=== PATIENT | female | born 1945 | race Caucasian/White ===

== ENCOUNTER 2018-03-24 01:56 | Inpatient (IN) | payer MEDICARE ==
[~2018-03-24] VITALS: Ht 180.3 cm; Wt 73.9 kg
[2018-03-24] VITALS (17 sets, daily range): BP systolic 133–164; BP diastolic 50–80
[~2018-03-24 01:56] MED LIST: IBUP800T37 PO
[2018-03-24] MEDS: NORMOSOL R SOLN(*) 1000 ML BAG 1,000 ML IV PRN ×2 (05:35→11:59)
[2018-03-24] MEDS ORDERED: ACETAMINOPHEN 500 MG TAB PO ONE (06:00)
[2018-03-24] MEDS ORDERED: MIDAZOLAM 2 MG/2 ML VIAL IVP PRN (06:00)
[2018-03-24] MEDS ORDERED: PREGABALIN 75 MG CAPSULE PO ONE (06:00)
[2018-03-24] MEDS ORDERED: FAMOTIDINE 20 MG TAB PO ONE (06:00)
[2018-03-24] MEDS ORDERED: ceFAZolin(*) 2GM/D5W 50ML 50 ML IVPB ONE (06:00)
[2018-03-24] MEDS ORDERED: LIDOCAINE/SOD BICARB 8.4% SYR ID ONE (06:00)
[2018-03-24] MEDS ORDERED: THROMBIN (BOVINE) 20,000 UNIT VIAL ONE (06:20)
[2018-03-24] MEDS ORDERED: ROPIVACAINE 0.2% 20 ML VIAL ONE (06:20)
[2018-03-24] MEDS ORDERED: fentaNYL CITR 250 MCG/5 ML AMP ONE ×2 (06:26→07:34)
[2018-03-24] MEDS ORDERED: PROPOFOL EMUL(*) 10MG/ML 20 ML 20 ML ONE ×4 (06:27→10:52)
[2018-03-24] MEDS ORDERED: LIDOCAINE 2% IV 100 MG/5ML SYR ONE (06:27)
[2018-03-24] MEDS ORDERED: PROPOFOL EMUL(*) 10MG/ML 20 ML 60 ML ONE (06:43)
--- NOTE | 2018-03-24 07:05 | NUR ---
SCRUB BRUSHES/WIPES DONE 03/23/18 1830 AND 2029, AGAIN 03/24/18 AT 0430AM
[2018-03-24] MEDS ORDERED: ROCURONIUM BROM 10 MG/ML 10 ML ONE (07:09)
[2018-03-24] MEDS ORDERED: ONDANSETRON 4 MG/2 ML VIAL ONE (07:17)
[2018-03-24] MEDS ORDERED: DEXAMETHASONE SOD PHOS 10MG/ML ONE (07:17)
[2018-03-24] MEDS ORDERED: KETAMINE HCL 200 MG/20 ML MDV ONE ×3 (07:26→09:27)
[2018-03-24] MEDS ORDERED: fentaNYL CITR 100 MCG/2 ML AMP ONE (12:09)
[2018-03-24] MEDS ORDERED: DIAZEPAM 5 MG TAB PO PRN (12:55)
[2018-03-24] MEDS ORDERED: BISACODYL 10 MG SUPP PR PRN (12:55)
[2018-03-24] MEDS ORDERED: MAGNESIUM HYDROXIDE* 30ML UDCP PO PRN (12:55)
[2018-03-24] MEDS ORDERED: ACETAMINOPHEN 500 MG TAB PO PRN (12:55)
[2018-03-24] MEDS ORDERED: oxyCODONE HCL 5 MG CAP PO PRN (12:55)
[2018-03-24] MEDS ORDERED: HYDROmorphone HCL 2 MG/ML SDV IVP PRN (12:55)
[2018-03-24] MEDS ORDERED: FLUSH 10 ML SYR IVP PRN (12:55)
[2018-03-24] MEDS ORDERED: diphenhydrAMINE 25 MG CAP PO PRN (12:55)
[2018-03-24] MEDS ORDERED: BENZOCAINE/MENTHOL 1 EACH LOZG PO PRN (12:55)
[2018-03-24] MEDS ORDERED: LR(*) 1000 ML BAG 1,000 ML IV PRN (12:55)
--- NOTE | 2018-03-24 13:01 | OPERATIVE REPORT 1 ---
EVENT DATE: March 24, 2018 SURGEON: Huan Cobian MD ANESTHESIOLOGIST: Mika Quinones MD ANESTHESIA: General endotracheal. NUTRITION PROFESSOR: Ritesh Valladares PA-C PREOPERATIVE DIAGNOSIS L4, L5 and L5, S1 degenerative spondylolisthesis with L4, L5 and L5, S1 spinal stenosis and radiculopathy with neurogenic claudication. POSTOPERATIVE DIAGNOSIS L4, L5 and L5, S1 degenerative spondylolisthesis with L4, L5 and L5, S1 spinal stenosis and radiculopathy with neurogenic claudication. PROCEDURE PERFORMED L4, L5 and L5, S1 laminectomy with posterolateral instrumented fusion. IV FLUIDS 2400 cc. ESTIMATED BLOOD LOSS 300 cc. IMPLANTS USED 6.5 mm x 45 mm pedicles screws from [employer] times 4. 6.5 mm x 40 mm pedicle screws from [employer] times 2. A 5.5 mm x 60 mm connecting rashawn times 1 and a 5.5 mm x 65 mm connecting rashawn times 1. Locking caps times 6 all from [employer]. SPECIMENS None. DRAINS None. COMPLICATIONS None. DISPOSITION For post anesthesia care unit INDICATIONS FOR SURGERY The patient is a 72-year-old female who presented with a complaint of low back and severe radiating left leg pain, numbness, tingling and weakness. She felt like the back pain began back in 2012 and physical therapy helped at the time. She then had gradually worsening left leg pain and weakness, ultimately requiring her to progress from normal gait to use of a cane, then a 4 footed cane, and finally a 4 wheeled walker. Her physical examination was significant for weakness in the left quadriceps, tibialis anterior and extensor hallucis longus as well as as gastroclisis complex. Deep tendon reflexes were symmetric. She had dysesthesias in the left saphenous and superficial peroneal nerve distributions with light touch. She had down going Babinski's, no clonus and negative Sullivan sign. Imaging studies showed anterolisthesis of L4 on L5 and L5, S1 with significant stenosis secondary to uncovering of the disc, facet hypertrophy and ligamentum flavum thickening at both of those levels. Secondary to ongoing symptoms and failure of nonsurgical care, the patient was offered an elected to undergo L4, L5 and L5, S1 laminectomy and posterolateral instrumented fusion. Prior to surgery, I explained in detail to the patient possible risks of surgery. These risks include bleeding, infection, damage to surrounding structures, persistent and/or worsening pain, nerve root injury, spinal fluid leak, meningitis, , blindness, sexual dysfunction, autonomic nervous system dysfunction, and other unforeseen medical and surgical complications. An understanding that in general, spinal surgery is more predictive at improving extremity discomfort and improving extremity weakness than improving axial back pain was stressed. DESCRIPTION OF PROCEDURE On the day of surgery, the patient was met in the preoperative hold area and all questions were answered. The operative site was identified and marked by myself. The patient was brought in good condition to the operating room and after succumbing to anesthesia, was position in the prone position on a Bernabe style table. All bony protuberances and soft tissues were well padded in the standard fashion. Care was taken to maintain appropriate perfusion pressures during anesthesia. Preoperative and intraoperative antibiotics were administered according to the appropriate timing scheduled. At the conclusion of the procedure sponge and needle counts were correct times 2. Final timeout was undertaken by members of the operating team to confirm correct patient, correct levels and correct surgery. A vertical incision was made overlying the intended surgical levels and sharp dissection was carried out down to the posterior elements. Soft tissues were elevated off the posterior elements in a subperiosteal manner and a lateral radiograph was obtained to confirm appropriate spinal levels. Starting points for pedicle screws were identified and uncovered using a combination of soft tissue elevation and the bipolar and monopolar electrocautery. This was at approximately the junction of the midpoint of the transverse processes, the superior aspect of the pars interarticularis and the lateral border of the facets at L4 and L5 and at S1 it was at the lateral and inferior margin of the L5, S1 facet joint. Once these were uncovered, the lateral gutters were packed with thrombin soaked sponges and attention was then turned to the laminectomy portion of the procedure. The spinous processes of L4 and L5 as well as the inferior aspect of the spinous process of L3 was removed with a Leksell rongeur and Milka bone cutter. The Leksell rongeur was used to thin the laminas down the midline and high speed darrius was used to further decorticate and thin the midline of the lamina. A curette was used to enter the canal by undermining the superior insertion of the ligamentum flavum from the inferior aspect of the L5 lamina. A Hertford elevator was used to separate dural adhesions from surrounding bone and soft tissue prior to use of the Kerrison punch. A #4 and #3 Kerrison rongeur were then used to perform a midline decompression of L4, L5 and L5, S1. We then used the Ronaldo elevator to separate scar from the dura, particularly on the left side at L5, S1 and then we were able to perform a wide posterolateral and lateral recess decompression. At the conclusion of the decompression, I was able to run the Serrato probe and the Hertford elevator along in the lateral recesses with no significant pressure noted on the nerves. The Serrato probe was similarly passed through the effected foramina and again, no significant pressure was noted. Hemostasis was obtained and attention was placement of pedicle screws. Starting points for pedicle screws were identified as previously described and a 5 mm high speed darrius was used to decorticate the overlying bone. A Lenke style probe was then advanced against resistance through the pedicles bilaterally at L4, L5 and S1 to an appropriate depth. Ball-tip feeler was used to palpate the pedicles superiorly, inferior, medially, laterally, and distally to insure absence of kd breaching. Screws were then placed in the standard fashion and testing with nerve physiologic monitoring and all tested greater than 20 milliamps. We had to leave the screws at L5 and L4 a little bit proud in order to facilitate placement of connecting rods. We were then able to place the connecting rods within the tulips and then place locking caps. Lateral radiograph was obtained that confirmed excellent position of all the instrumentation. The locking caps were then tightened and then finally tightened with the torque limiting device. The wound was then irrigated with copious sterile saline solution and we used a high speed darrius to then decorticate the transverse processes of L4 and L5 bilaterally, as well as the superior aspect of the sacral ala. Milled local bone which had been previously prepared was then packed in those lateral gutters overlying the transverse processes and the sacral ala. Once this was completed, the wound was closed in layers using a running stitch for the deep fascia, inverted interrupted sutures for the subcutaneous tissue and the a running subcuticular skin stitch. Sponge and needle counts were correct times 2. POSTOPERATIVE CARE PLAN The patient will remain in the hospital until she meets discharge criteria. She will follow up in my clinic in 2 weeks for wound check and examination. JOAQUÍN
--- NOTE | 2018-03-24 13:21 | RADIOLOGY IMAGING REPORT ---
[place] [facility] [place] NAME[place] Lizzie Damon : 1945 MR: [id number] V: [id number] EXAM DATE: ORDERING PHYSICIAN: TYLOR NICHOLE TECHNOLOGIST: Location: [facility] Patient: Lizzie Damon : 1945 Visit/Account:[id number] Date of Sevice: 03/24/2018 L-SPINE >4 VIEWS HISTORY: L4-S1 DISC HERNIATION/FUSION COMPARISON: MRI examination February 25 FINDINGS: Images are demonstrated with hardware posteriorly at the level of L3-L4. Subsequent images demonstra te lumbosacral fusion L4-S1. Correlate with operative note. IMPRESSION: Intraoperative fluoroscopy Report Dictated By: Eitan Bill MD at 03/24/2018 1:10 PM Report E-Signed By: Eitan Bill MD at 03/24/2018 1:16 PM WSN:[id number]
--- NOTE | 2018-03-24 14:04 | Hospitalist Consultation ---
History of Present Illness Requesting Physician Dr. Cobian Reason for Consult Medical Management Chief Complaint s/p lumbar surgery History of Present Illness She was admitted s/p lumbar surgery. It is reported the surgery went well and without complication. History Home Meds Reported Medications Ibuprofen (IBUPROFEN) 800 Mg Tablet, 1 TAB PO BID, TAB 03/17/18 Allergies: Coded Allergies: Sulfa (Sulfonamide Antibiotics) (Verified Allergy, Mild, HIVES, 03/17/18) Patient History: FH: diabetes mellitus MOTHER, BROTHER OR SISTER FH: hypertension FATHER, FH: stroke FATHER, Hx Smoking: Yes (Quit 10 years ago) Smoking Status: Former Smoker When Quit Tobacco?: 2008 Caffeine Intake: Coffee Caffeine/Cups Per Day: 2-3/DAY Alcohol Used: Wine Social Drug Use: Never History of IV Drug Use: No Review of Systems All Systems Reviewed/Normal: Yes, Except as Noted Musculoskeletal: Pain (surgical site, lumbar) Exam Vital Signs Vital Signs Date Time Temp Pulse Resp B/P (MAP) Pulse Ox O2 Delivery O2 Flow Rate FiO2 03/24/18 13:35 80 12 95 03/24/18 06:45 97.8 164/80 (108) Room Air General Appearance: Alert, Awake, No Acute Distress, Afebrile Neuro: No Gross deficits Cardiovascular: Regular Rate and Rhythm Respiratory: No Respiratory Distress, Clear to Auscultation GI: Abd Soft and Non-Tender Extremities: Warm, Perfused; No Edema Psych: Alert & Oriented X3, Appropriate Mood & Affect Assessment and Plan Problems: (1) Status post lumbar surgery Status: Acute Assessment & Plan: Followed by Dr. Cobian. Hospitalist will follow for any medical complications. She only takes Ibuprofen as needed for pain. She denies any medical history. She will get CMP in the morning to assure electrolytes are normal post-operatively. Venous Thromboembolism Antithrombotics Is Pt On Any Antithrombotics?: No Prophylaxis Tx Contraindicated Pharmacological Contraindicati: Surgical Contraindication KIMBERLY CORREIA Mar 24, 2018 14:04
[2018-03-24] MEDS: APAP/HYDROCODONE 325/5 TAB PO PRN (14:26)
--- NOTE | 2018-03-24 15:38 | NUR ---
Physical Therapy Impression Pt instructed in log rolling technique for supine<>sit transfer but was able to initiate any movement during transfer. Pt required Max-Total A for supine<>sit transfer and was unable to maintain sitting at EOB without Min A due to retropulsion. Not safe to attempt additional mobility at this time. Recommend nursing use bed crump at this time. Physical Therapy Goals 1. SBA bed mobility using log rolling technique. 2. SBA transfers. 3. SBA gait x 50' with 4-wheeled walker. 4. Ascend/descend 1 step CGA. 5. Mod I with lumbar precautions. Patient's Goals
[2018-03-24] MEDS: ceFAZolin(*) 2GM/D5W 50ML 50 ML IVPB SCH ×2 (15:39→23:19)
[2018-03-24] MEDS: ACETAMINOPHEN(*)1000 MG/100 ML 100 ML IVPB PRN (20:07)
[2018-03-24] MEDS: ONDANSETRON 4 MG/2 ML VIAL IVP PRN (20:07)
[2018-03-24] MEDS: DOCUSATE SODIUM 100 MG CAP PO SCH (20:15)
[2018-03-25 00:14] VITALS: BP 165/64
[2018-03-25] MEDS: APAP/HYDROCODONE 325/5 TAB PO PRN (05:42)
[2018-03-25] MEDS: ceFAZolin(*) 2GM/D5W 50ML 50 ML IVPB SCH (07:02)
[2018-03-25 07:28] VITALS: BP 160/68
[2018-03-25] MEDS ORDERED: NS(*) 0.9% 1000 ML BAG 1,000 ML IV PRN ×2 (08:25→10:43)
[2018-03-25] MEDS: DOCUSATE SODIUM 100 MG CAP PO SCH ×2 (08:40→21:59)
[2018-03-25] MEDS: ONDANSETRON 4 MG/2 ML VIAL IVP PRN (08:41)
[2018-03-25 09:05] LABS: PLATELET COUNT, AUTOMATED 196 K/uL (150-450)
--- NOTE | 2018-03-25 09:46 | NUR ---
Physical Therapy Impression Bed mobility completed with HOB completely elevated with pt pivoting on bottom to prevent twisting motion of back. Pt required min-modA of 2 to transition supine to sit. Pt fearful of movement. BAJA brace donned in sitting and tightened upon standing. Pt required min-modA to rise to stand, with retropulsion noted. Pt required step by step cues and min-modA x2 for stand pivot transfer from bed to radiology w/c. Pt demonstrates plantar flexed posturing of L) foot but able to weightbear when instructed. Pt with nausea once up in chair, BP WNL, nursing present. Rec short term sub acute rehab. Physical Therapy Goals 1. SBA bed mobility using log rolling technique. 2. SBA transfers. 3. SBA gait x 50' with 4-wheeled walker. 4. Ascend/descend 1 step CGA. 5. Mod I with lumbar precautions. Patient's Goals
[2018-03-25 10:01] VITALS: BP 165/86
[2018-03-25 10:31] VITALS: Ht 180.3 cm; Wt 73.9 kg
--- NOTE | 2018-03-25 10:55 | Hospitalist Progress Note ---
Subjective Progress Notes Subjective She was admitted after lumbar surgery. She reports a lot of post-operative pain this morning. She is having difficulty moving. She also has had decreased urine output overnight. Patient Complains of: Cardiovascular: No: Chest Pain Respiratory: No: Shortness of Breath Gastrointestinal: Nausea Musculoskeletal: Pain Physical Exam Vital Signs Date Time Temp Pulse Resp B/P (MAP) Pulse Ox O2 Delivery O2 Flow Rate FiO2 03/25/18 10:36 97.4 98 20 89 Room Air 03/25/18 10:01 165/86 (112) 03/25/18 07:28 0.5 Intake and Output 03/25/18 00:00 Intake Total 2260 ml Output Total 600 ml Balance 1660 ml Intake Oral 10 ml IV Total 2250 ml Blood Product 0 ml Other 0 ml Emesis 100 ml Estimated Blood Loss 500 ml # Voids 0 # Emeses 1 General Appearance: Alert, Awake, No Acute Distress, Afebrile Neuro: No Gross deficits Cardiovascular: Regular Rate and Rhythm Respiratory: No Respiratory Distress, Clear to Auscultation : Other (urine retention noted) Extremities: Warm, Perfused; No Edema Psych: Alert & Oriented X3, Appropriate Mood & Affect Result Diagram: 03/25/18 0000 03/25/18 0525 Assessment and Plan Problems: (1) Status post lumbar surgery Status: Acute Assessment & Plan: Followed by Dr. Cobian. Hospitalist will follow for any medical complications. She only takes Ibuprofen as needed for pain. She denies any medical history. (2) Acute urinary retention Status: Acute Assessment & Plan: She has required intermittent urinary catheterizations. She will continue to have IV fluids this morning, secondary to decreased urine output and decreased appetite. Continue to follow. 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
--- NOTE | 2018-03-25 11:47 | RADIOLOGY IMAGING REPORT ---
FACILITY: [facility] PATIENT NAME: Lizzie Damon : 1945 MR: [id number] V: [id number] EXAM DATE: ORDERING PHYSICIAN: TYLOR NICHOLE TECHNOLOGIST: Location: [facility] Patient: Lizzie Damon : 1945 Visit/Account:[id number] Date of Sevice: 03/25/2018 Exam type: L-SPINE 2 OR 3 VIEW History: s/p Lami/fusion Comparison: March 24, 2018. Findings: Again noted are post surgical changes from posterior lumbar interbody fusion at L4-L5 and L5-S1. The vertebral bodies appear unchanged in alignment. There is an approximate 1 cm anterolisthesis of L5 with respect S1 and moderate disc space narrowing at this level. Moderate spondylotic changes in the visualized lower thoracic spine also noted and mild disc space narrowing L1-2. There is a posterior brace in place IMPRESSION: 1. As above Report Dictated By: Kamala Fontana MD at 03/25/2018 11:39 AM Report E-Signed By: Kamala Fontana MD at 03/25/2018 11:43 AM WSN:[id number]
[2018-03-25 11:48] VITALS: BP 143/66
[2018-03-25 14:37] VITALS: BP 141/59
--- NOTE | 2018-03-25 16:45 | NUR ---
Physical Therapy Impression Nursing assisting pt up to [facility]. PT available for second session. Alert, but with diminished affect noted. Pt initially attempted to stand with FWW but was unable to maintain center of gravity over base of support. PT then tried again with use of gait belt and max/total assist of PT to complete pivot transfer to [facility]. Pt was very fearful, reaching for things to grab and resisting the movement. Upon return from [facility] to bed, PT and nursing utilized the EZ lift device and pt still required 2 person Mod assist to bring hips far enough forward to place pads behind her. Pt is unable to stand fully erect and remains with hips and knees flexed. Recommend further rehab prior to discharge home for safety with any mobility. Physical Therapy Goals 1. SBA bed mobility using log rolling technique. 2. SBA transfers. 3. SBA gait x 50' with 4-wheeled walker. 4. Ascend/descend 1 step CGA. 5. Mod I with lumbar precautions. Patient's Goals
[2018-03-25] MEDS: TAMSULOSIN HCL 0.4 MG CAP PO SCH (18:24)
[2018-03-25] MEDS: ACETAMINOPHEN(*)1000 MG/100 ML 100 ML IVPB PRN (21:59)
[2018-03-25 23:43] VITALS: BP 145/82
[2018-03-26 03:02] VITALS: BP 159/65
[2018-03-26 07:08] VITALS: BP 159/65
[2018-03-26] MEDS: APAP/HYDROCODONE 325/5 TAB PO PRN (07:30)
[2018-03-26] MEDS: TAMSULOSIN HCL 0.4 MG CAP PO SCH (09:00)
[2018-03-26] MEDS: DOCUSATE SODIUM 100 MG CAP PO SCH ×2 (09:00→20:29)
[2018-03-26] MEDS ORDERED: ACETAMINOPHEN(*)1000 MG/100 ML 100 ML IVPB PRN ×2 (10:00→10:05)
[2018-03-26] MEDS ORDERED: ACETAMIN/CODEINE #3 300-30 MG PO PRN (10:00)
[2018-03-26] MEDS ORDERED: DIAZEPAM 50 MG/10 ML MDV IVP PRN (10:05)
--- NOTE | 2018-03-26 10:47 | Hospitalist Progress Note ---
Subjective Progress Notes Subjective She was admitted after lumbar surgery. She appears difficult to awaken, has pin point pupils, slurring words. She denies any complaints, states "I don't feel bad". Patient Complains of: Neurological: Slurred Speech Cardiovascular: No: Chest Pain Respiratory: No: Shortness of Breath Physical Exam Vital Signs Date Time Temp Pulse Resp B/P (MAP) Pulse Ox O2 Delivery O2 Flow Rate FiO2 03/26/18 07:44 90 Nasal Cannula 0.5 03/26/18 07:08 97.8 111 16 159/65 (96) Intake and Output 03/26/18 07:00 Intake Total 2754 ml Output Total 1780 ml Balance 974 ml Intake Oral 150 ml IV Total 2604 ml Output Urine Total 1780 ml General Appearance: Alert, Awake, No Acute Distress, Afebrile Neuro: No Gross deficits, Other (2+ strength bilateral hands and feet, able to lift arms in air without drop) Cardiovascular: Regular Rate and Rhythm Respiratory: No Respiratory Distress, Clear to Auscultation GI: Soft and Non-Tender Extremities: Warm, Perfused; No Edema Psych: Alert & Oriented X3, Appropriate Mood & Affect Result Diagram: 03/25/18 0000 03/25/18 0525 Assessment and Plan Problems: (1) Status post lumbar surgery Status: Acute Assessment & Plan: Followed by Dr. Cobian. Hospitalist will follow for any me dical complications. She only takes Ibuprofen as needed for pain. She denies any medical history. She appears oversedated from medications, as she is neurologically intact. Dr. Cobian did reduce narcotics 03/26. Will continue to monitor. (2) Acute urinary retention Status: Acute Assessment & Plan: She has required intermittent urinary catheterizations. She will continue to have IV fluids, secondary to decreased urine output and dec reased appetite. Continue to follow. 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
[2018-03-26 11:46] VITALS: BP 135/62
[2018-03-26 14:16] VITALS: BP 143/54
--- NOTE | 2018-03-26 16:24 | NUR ---
Physical Therapy Impression Attempted to see Pt from [id number] with Pt unable to stay awake, follow directions, or successfully participate in PT. Will attempt at a later time. Physical Therapy Goals 1. SBA bed mobility using log rolling technique. 2. SBA transfers. 3. SBA gait x 50' with 4-wheeled walker. 4. Ascend/descend 1 step CGA. 5. Mod I with lumbar precautions. Patient's Goals
--- NOTE | 2018-03-26 16:29 | NUR ---
Physical Therapy Impression Pt with some initiation of moving B LEs toward EOB but ultimately required Max A and use of elevated bed to transfer supine>sit and Max A-Total A for sit>supine transfer. Log roll technique utilized for protection of lumbar surgery. Pt stood into EZ lift with Max A x2. Verbal and tactile cueing utilized to try to improved forward flexed posture, Pt unable. Pt returned to supine as current posture is in violation of lumbar precautions. Strongly recommend additional rehab prior to returning home. Physical Therapy Goals 1. SBA bed mobility using log rolling technique. 2. SBA transfers. 3. SBA gait x 50' with 4-wheeled walker. 4. Ascend/descend 1 step CGA. 5. Mod I with lumbar precautions. Patient's Goals
[2018-03-26 18:39] VITALS: BP 145/63
[2018-03-26] MEDS: ACETAMINOPHEN 500 MG TAB PO PRN (20:29)
[2018-03-26 22:38] VITALS: BP 160/71
[2018-03-27 07:32] VITALS: BP 154/71
--- NOTE | 2018-03-27 08:22 | Hospitalist Progress Note ---
Subjective Progress Notes Subjective Main issue is complete inactivity even off the narcotics. She has no interest in moving. Pain control is reasonable with the low back. Denies SOB, cough. Barely using the inspirometer. Physical Exam Vital Signs Date Time Temp Pulse Resp B/P (MAP) Pulse Ox O2 Delivery O2 Flow Rate FiO2 03/27/18 07:58 87 03/27/18 07:32 98.1 90 20 154/71 (98) Nasal Cannula 0.5 Intake and Output 03/27/18 06:59 Intake Total 50 ml Output Total 1925 ml Balance -1875 ml Intake Oral 50 ml Output Urine Total 1925 ml General Appearance: Alert, Awake, No Acute Distress, Afebrile Cardiovascular: Regular Rate and Rhythm, Other (S1S2 are normal. Grade 1/6 short systolic murmur LSB.) Respiratory: Clear to Auscultation, Other (Tidal volume is small with poor respiratory effort but there are no wheezes, ronchi.) Extremities: Warm, Perfused Psych: Other (Awake and will answer questions and respond appropirately but is sluggish. ) Result Diagram: 03/25/18 0000 03/25/18 0525 Assessment and Plan Problems: (1) Status post lumbar surgery Status: Acute Assessment & Plan: Followed by Dr. Cobian. Hospitalist will follow for any medical complications. She only takes Ibuprofen as needed for pain. She denies any medical history. She appeared oversedated from medications yesterday but that has not changed with decreasing meds. Aside from sedation she is neurologically intact. Dr. Cobian did reduce narcotics 03/26. Will continue to monitor. Nurses, and PT will push her to do therapy and use inspirometer. I explained the risk of pneumonia, skin breakdown and clots from her inactivity. Arrangements for longterm Phys Therapy in [place] has been arranged but they will not be able to take her till Thursday. (2) Acute urinary retention Status: Acute Assessment & Plan: She has required intermittent urinary catheterizations. She will continue to have IV fluids, secondary to decreased urine output and decreased appetite. Continue to follow. Time Spent on Plan of Care: > 30 min Exam Sepsis Risk: No Definite Risk RAHUL COOLEY MD FACP Mar 27, 2018 08:22
[2018-03-27] MEDS: DOCUSATE SODIUM 100 MG CAP PO SCH ×2 (09:51→20:50)
[2018-03-27] MEDS: TAMSULOSIN HCL 0.4 MG CAP PO SCH (09:51)
--- NOTE | 2018-03-27 11:09 | NUR ---
Physical Therapy Impression Patient performed log roll with max A x 3 then supine <-> sit max A x 3. Upon sitting brace was placed on patient. Patient then sat EOB x 3 minutes with min A then moving to SBA. Patient then transferred from sitting EOB to standing in STS lift. Patient stood in STS x 5 reps ~15 seconds before needing to sit and rest with max cuing to extend knees and bring hips forward and to stand tall. Patient left in room with nursing at end of treatment. Physical Therapy Goals 1. SBA bed mobility using log rolling technique. 2. SBA transfers. 3. SBA gait x 50' with 4-wheeled walker. 4. Ascend/descend 1 step CGA. 5. Mod I with lumbar precautions. Patient's Goals
[2018-03-27 11:34] VITALS: BP 167/74
[2018-03-27 15:53] VITALS: BP 167/74
[2018-03-27 19:17] VITALS: BP 167/68
[2018-03-27] MEDS: ACETAMINOPHEN 500 MG TAB PO PRN (20:49)
[2018-03-27 23:33] VITALS: BP 176/83
[2018-03-28 07:11] VITALS: BP 180/83
--- NOTE | 2018-03-28 08:17 | Hospitalist Progress Note ---
Subjective Progress Notes Subjective Much better this morning being more alert and talkative. Color much better. Eyes brighter and more focused on conversation. Minimal pain in the low back but legs feel good without pain. Able to stand at bedside with help and doing better with inspirometer. Physical Exam Vital Signs Date Time Temp Pulse Resp B/P (MAP) Pulse Ox O2 Delivery O2 Flow Rate FiO2 03/28/18 07:11 98.2 94 20 180/83 (115) 91 Nasal Cannula 0.5 Intake and Output 03/28/18 07:00 Intake Total 300 ml Output Total 1400 ml Balance -1100 ml Intake Oral 300 ml Output Urine Total 1400 ml General Appearance: Alert, Awake, No Acute Distress, Afebrile Cardiovascular: Regular Rate and Rhythm, Other (S1S2 are loud with grade 1/6 systolic murmur at LSB.) GI: Soft and Non-Tender Extremities: Soft and Non Tender, Warm, Pulses, Perfused Psych: Alert & Oriented X3, Appropriate Mood & Affect Result Diagram: 03/25/18 0000 03/25/18 0525 Assessment and Plan Problems: (1) Status post lumbar surgery Status: Acute Assessment & Plan: Followed by Dr. Cobian. She appeared oversedated from medications post-op so all narcotics were stopped with slow improvement in men lupis status. Aside from sedation she was neurologically intact. Nurses, and PT will push her to do therapy and use inspirometer. I explained the risk of pneumonia, skin breakdown and clots from her inactivity. Arrangements for [facility] in [place] has been arranged but they will not be able to take her till Thursday. Need to D/C graham this morning and ambulate in hallways as much as possible. (2) Acute urinary retention Status: Acute Assessment & Plan: She has required intermittent urinary catheterizations. Graham out today. Time Spent on Plan of Care: > 30 min Exam Sepsis Risk: No Definite Risk RAHUL COOLEY MD FACP Mar 28, 2018 08:17
[2018-03-28] MEDS: TAMSULOSIN HCL 0.4 MG CAP PO SCH (08:54)
[2018-03-28] MEDS: DOCUSATE SODIUM 100 MG CAP PO SCH ×2 (08:54→20:26)
--- NOTE | 2018-03-28 10:21 | NUR ---
Physical Therapy Impression Patient transferred from sts lift to hip chair. After retreiving a chair from ecf patient used sts lift to transfer from hip chair to ecf chair. Patient able to go from sitting to standing in ez lift with min A x 1. Patient is more alert today and able to help more with transfers. Patient is to go to [place] to a rehab unit. Physical Therapy Goals 1. SBA bed mobility using log rolling technique. 2. SBA transfers. 3. SBA gait x 50' with 4-wheeled walker. 4. Ascend/descend 1 step CGA. 5. Mod I with lumbar precautions. Patient's Goals
[2018-03-28 11:40] VITALS: BP 167/82
[2018-03-28 14:55] VITALS: BP 184/86
[2018-03-28] MEDS ORDERED: hydrALAZINE HCL 20 MG/ML VIAL IVP PRN (16:35)
[2018-03-28 18:42] VITALS: BP 131/40
[2018-03-28] MEDS: ONDANSETRON 4 MG/2 ML VIAL IVP PRN (20:26)
[2018-03-29] VITALS (13 sets, daily range): BP systolic 146–181; BP diastolic 52–150
[2018-03-29 08:28] LABS: PLATELET COUNT, AUTOMATED 283 K/uL (150-450)
[2018-03-29] MEDS ORDERED: KCL (*) 20 MEQ/100 ML PREMIX 100 ML IV ONE ×2 (08:50→13:00)
[2018-03-29] MEDS: DOCUSATE SODIUM 100 MG CAP PO SCH (09:29)
[2018-03-29] MEDS: TAMSULOSIN HCL 0.4 MG CAP PO SCH (09:29)
--- NOTE | 2018-03-29 09:38 | RADIOLOGY IMAGING REPORT ---
FACILITY: [facility] [place] PATIENT NAME: Lizzie Damon : 1945 MR: [id number] V: [id number] EXAM DATE: ORDERING PHYSICIAN: KIMBERLY CORREIA TECHNOLOGIST: Location: [facility] - [place] Patient: Lizzie Damon : 1945 Visit/Account:[id number] Date of Sevice: 03/29/2018 EXAMINATION: CT Head without intravenous contrast HISTORY: Decreased responsiveness after surgery. TECHNIQUE: Axial images were obtained from the skull base to the vertex without intravenous contrast . Sagittal and coronal reformatted images are also submitted. One of the following dose optimization techniques was utilized in the performance of this exam: Autom ated exposure control; adjustment of the mA and/or kV according to the patient's size; or use of an i terative reconstruction technique. Specific details can be referenced in the facility's radiology C T exam operational policy. COMPARISON: None available. FINDINGS: Brain volume: Mild generalized volume loss. Ventricles: The ventricles are dilated out of proportion to sulcal enlargement. This could represen t hydrocephalus or volume loss. Acute ischemic changes: None. Hemorrhage: Scattered subarachnoid hemorrhage. Intraventricular hemorrhage in the lateral ventricle s. Masses / edema: None. Rebolledo-white: Negative. White matter: Mild to moderate patchy white matter hypodensity. Vessels: Negative. Extra-axial: Otherwise negative. Calvarium / skull base: Negative. Visualized sinuses / orbits: Negative. IMPRESSION: 1. Scattered subarachnoid hemorrhage and intraventricular hemorrhage in the lateral ventricles. 2. The ventricles are dilated out of proportion to sulcal enlargement which may represent mild hydro cephalus in the setting of subarachnoid and intraventricular hemorrhage. Alternatively this could be related to volume loss. No comparison exam is available to evaluate for stability of this finding. 3. Mild to moderate chronic white matter disease, nonspecific but most likely representing chronic m icrovascular ischemia. Results were called to KIMBERLY CORREIA at 03/29/2018 9:26 AM. Report Dictated By: Carl Luu MD at 03/29/2018 9:23 AM Report E-Signed By: Carl Luu MD at 03/29/2018 9:32 AM WSN:[id number]
--- NOTE | 2018-03-29 09:39 | RADIOLOGY IMAGING REPORT ---
[place] [facility] [place]: Lizzie Damon : 1945 MR: [id number] V: [id number] EXAM DATE: ORDERING PHYSICIAN: KIMBERLY CORREIA TECHNOLOGIST: Location: [facility] [place] Patient: Lizzie Damon : 1945 Visit/Account:[id number] Date of Sevice: 03/29/2018 CHEST SINGLE AP HISTORY: Decreased responsiveness following surgery. COMPARISON: None FINDINGS: Cardiomediastinal contours: The heart size is normal. Lungs and pleura: There is no finding of an infiltrate, lymphadenopathy or pleural effusion. Bones/soft tissues: There has been prior anterior cervical fusion. IMPRESSION: Normal portable chest x-ray. No findings of an infiltrate or significant atelectasis in this postoper ative patient. Report Dictated By: Reji Araya MD at 03/29/2018 9:33 AM Report E-Signed By: Reji Araya MD at 03/29/2018 9:35 AM WSN:[id number]
[2018-03-29] MEDS ORDERED: NS(*) 0.9% 1000 ML BAG 1,000 ML ONE (10:33)
[2018-03-29] MEDS ORDERED: NS(*) 0.9% 250 ML BAG 250 ML ONE (10:52)
[2018-03-29] MEDS ORDERED: NICARDIPINE(*) 20MG/NS 200 ML 200 ML IV ONE ×2 (11:00→11:30)
--- NOTE | 2018-03-29 11:21 | Hospitalist Progress Note ---
Subjective Progress Notes Subjective She was admitted after lumbar laminectomy and fusion. She still has decreased responsiveness. She has not been eating or drinking. She has decreased urine output. Physical Exam Vital Signs Date Time Temp Pulse Resp B/P (MAP) Pulse Ox O2 Delivery O2 Flow Rate FiO2 03/29/18 08:30 99.5 104 24 176/82 (113) 94 Nasal Cannula 1.0 Intake and Output 03/29/18 06:59 Intake Total 240 ml Output Total 1225 ml Balance -985 ml Intake Oral 240 ml Output Urine Total 1225 ml General Appearance: Afebrile Neuro: Other (unable to stay awake throughout exam, seems more weak to lower extremities than my prior exam (Thursday)) Cardiovascular: Other (tachycardia noted, her blood pressures increased yesterday requiring hydralazine) Respiratory: No Respiratory Distress, Clear to Auscultation GI: Soft and Non-Tender Extremities: Warm, Perfused; No Edema Psych: Other (she is aware of her surroundings once awakened, knows what day it is) Result Diagram: 03/29/1882303/29/18823 Assessment and Plan Problems: (1) Subarachnoid hemorrhage Status: Acute Assessment & Plan: With her decreased responsiveness, I ordered a CT head without contrast. I was called from radiology, she has scattered subarachnoid hemorrhage and intraventricular hemorrhage. She does also have dilated ventricles. I did speak with regarding results, he wanted her transferred to [facility]. I called [facility] and spoke with neurosurgeon Dr. Brandt, who is unable to accept the patient secondary to complexity of the patient. He [place] mmended she be transferred to [facility]. I spoke with Dr. Oquendo who has accepted care for this patient at [facility]. She will be transferred by air to their neuro critical care unit. They recommended she be started on a Nicardipine drip to maintain systolic blood pressures less than 140 if there is an aneurysm possibly present. I spoke with patient's . He has consented to transfer of the patient. (2) Status post lumbar surgery Status: Acute Assessment & Plan: She had Laminectomy and Fusion 03/24. Followed by Dr. Cobian. She appeared oversedated from medications post-op so all narcotics were stopped 2/ with slow improvement in mental status. Aside from sedation she was neurologically intact. (3) Acute urinary retention Status: Acute Assessment & Plan: She has required intermittent urinary catheterizations. She will have Kolb placed 2/. Exam Sepsis Risk: Severe Sepsis Risk KIMBERLY CORREIA Mar 29, 2018 11:21
== END 2018-03-29 12:16 | disposition short-term general hospital (02) | DRG 459 ==
LOC: OR 01:56 → MED 13:35
PROVIDERS: ADMIT Orthopaedic Surgery; ATTEND Orthopaedic Surgery
PROC: 0SG3071 Fusion of Lumbosacral Joint with Autologous Tissue Substitute, Posterior Approach, Posterior Column, Open Approach (ICD-10-PCS; 2018-03-24)
PROC: 01NB0ZZ Release Lumbar Nerve, Open Approach (ICD-10-PCS; 2018-03-24)
PROC: 0SG0071 Fusion of Lumbar Vertebral Joint with Autologous Tissue Substitute, Posterior Approach, Posterior Column, Open Approach (ICD-10-PCS; principal; 2018-03-24 07:09)
DX: M43.16 Spondylolisthesis, lumbar region (principal); I61.5 Nontraumatic intracerebral hemorrhage, intraventricular; I60.9 Nontraumatic subarachnoid hemorrhage, unspecified; M48.062 Spinal stenosis, lumbar region with neurogenic claudication; M54.16 Radiculopathy, lumbar region; M48.07 Spinal stenosis, lumbosacral region; M54.17 Radiculopathy, lumbosacral region; R33.9 Retention of urine, unspecified; T40.605A Adverse effect of unspecified narcotics, initial encounter; Y92.230 Patient room in hospital as the place of occurrence of the external cause; Z87.891 Personal history of nicotine dependence; Z88.2 Allergy status to sulfonamides
CPT/HCPCS: 36415; 70450; 71045; 72020; 72100; 81001; 82040; 82247; 82310; 82374; 82435; 82565; 82947; 84075; 84132; 84155; 84295; 84450; 84460; 84520; 85025; 86850; 86900; 86901; 95940; 97162; C1713; J0131; J0360; J0690; J1100; J1170; J2001; J2405; J2704; J2795; J3010; J3480; J3490; J7030; J7120

== ENCOUNTER → 2018-03-29 | Outpatient (REF) ==
[2018-03-25 10:31] VITALS: BMI 22.7
== END ==
LOC: AMB 11:41
PROVIDERS: ATTEND Nurse Practitioner
DX: Z02.9 Encounter for administrative examinations, unspecified (principal)